=== PATIENT | male | born 1990 | race Caucasian/White ===

== ENCOUNTER 2022-12-01 22:51 | Emergency (ER) | payer OTHER ==
[~2022-12-01] VITALS: Ht 177.8 cm; Wt 123.8 kg
[~2022-12-01 22:51] MED LIST: ARTTEAOPSO OS; BACL10 PO; BISA10S PR; ERYT.5TO OS; FIBER GUMMIES; GUMMI BEAR MULTIVITA; LEVE500 PO; LORA1 PO; LORA10ER PO; METO50 GT; METO50 PO; MULVITB&C GT; ONDA4ODT MM; PRED1SU OS; SENN8.8S8 PO; SERT100 PO; WARF1 GT; WARF7.5 PO; [UNRECOGNIZED DRUG - OTHER]
[2022-12-02 00:09] VITALS: BP 117/80
[2022-12-02] MEDS ORDERED: LIDOCAINE1 EAC1 TOP (02:03)
== END 2022-12-02 02:11 | disposition home or self-care (01) ==
LOC: ER 22:51
DX: R07.89 Other chest pain (principal); M79.601 Pain in right arm; M79.621 Pain in right upper arm; Z91.048 Other nonmedicinal substance allergy status; Z91.040 Latex allergy status; Z79.899 Other long term (current) drug therapy
CPT/HCPCS: 71045; 99283-25; A9270